=== PATIENT | male | born 2000 ===

== ENCOUNTER 2024-07-09 19:20 | Emergency (ER) | payer MEDICAID, SELFPAY ==
[2024-07-09 19:29] VITALS: BP 154/82; PULSE 60; O2SAT 98
[2024-07-09 19:51] VITALS: BP 115/76; PULSE 53; RESP 18; TEMP 36.6; O2SAT 98; BMI 29.7
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
[2024-07-09 21:04] LABS: Influenza A PCR NEGATIVE (Negative); Influenza B PCR NEGATIVE (Negative); Resp Syncy Virus RNA Qual PCR NEGATIVE (Negative); SARS COV2 PCR INHOUSE NEGATIVE (Negative)
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
[2024-07-09] MEDS: Ibuprofen 600 MG TABLET PO (22:11)
[2024-07-10 00:20] VITALS: BP 132/75; PULSE 66; RESP 18; TEMP 37.2; O2SAT 98
[2024-07-10 00:31] VITALS: BP 132/75; PULSE 66; RESP 18; TEMP 37.2; O2SAT 98
== END 2024-07-10 00:31 | disposition home or self-care (01) ==
PROVIDERS: Physician Assistant; Emergency Provider Internal Medicine
DX: M79.10 Myalgia, unspecified site (principal); Z59.00 Homelessness unspecified; Z03.818 Encounter for observation for suspected exposure to other biological agents ruled out
CPT/HCPCS: 0241U; 99283; 99284

== ENCOUNTER 2024-07-10 00:45 | Emergency (ER) | payer MEDICAID, SELFPAY ==
[2024-07-10 00:51] VITALS: BP 130/79; PULSE 60; RESP 16; TEMP 36.6; O2SAT 97; BMI 30.8
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
[2024-07-10] MEDS: Ibuprofen 600 MG TABLET PO (00:55)
--- NOTE | 2024-07-10 00:55 | PC.NURSE ---
ethnic origins teacher provided the patient with a pair of pants from our extra clothing supplies.
[2024-07-10 01:00] VITALS: BP 130/79; PULSE 60; RESP 16; TEMP 36.6; O2SAT 97
== END 2024-07-10 01:01 | disposition home or self-care (01) ==
LOC: HO.ED 01:01
PROVIDERS: Emergency Provider Internal Medicine
DX: R52 Pain, unspecified (principal); Z59.00 Homelessness unspecified
CPT/HCPCS: 99283; 99284

== ENCOUNTER 2024-07-10 07:03 | Emergency (ER) | payer MEDICAID, SELFPAY ==
[2024-07-10 07:09] VITALS: BP 147/79; PULSE 52; RESP 16; TEMP 36.4; O2SAT 99; BMI 29.6
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
== END 2024-07-10 10:08 | disposition left against medical advice (07) ==
PROVIDERS: Emergency Provider Emergency Medicine
DX: Z04.1 Encounter for examination and observation following transport accident (principal); M25.572 Pain in left ankle and joints of left foot; M25.571 Pain in right ankle and joints of right foot; Z59.00 Homelessness unspecified
CPT/HCPCS: 99282

== ENCOUNTER 2024-07-10 11:28 | Emergency (ER) | payer MEDICAID, SELFPAY ==
[2024-07-10 11:42] VITALS: BP 130/88; PULSE 60; O2SAT 99
[2024-07-10 11:59] VITALS: BP 124/73; PULSE 54; RESP 16; TEMP 36.6; O2SAT 99; BMI 30.8
--- NOTE | 2024-07-10 12:08 | PC.NURSE ---
pt served with [facility] paperwork by [facility] officer Ryan.
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
[2024-07-10 12:36] VITALS: BP 124/73; PULSE 54; RESP 16; TEMP 36.6; O2SAT 99
--- NOTE | 2024-07-10 12:41 | PC.NURSE ---
this nurse removed 20g IV from right wrist- dc paperwork printed- attempted to discharge patient- attempted to provide patient with [facility] pt resource booklet which contains listing of local homeless shelters- upon arrival to exam room pt had left through [facility] exam room door - unable to obtain DC vitals
== END 2024-07-10 12:41 | disposition home or self-care (01) ==
PROVIDERS: Emergency Provider Emergency Medicine
DX: M79.10 Myalgia, unspecified site (principal); Z59.00 Homelessness unspecified
CPT/HCPCS: 99282